=== PATIENT | male | born 1975 | race Caucasian/White ===

== ENCOUNTER → 2017-12-12 | Outpatient (CLI) | payer OTHER ==
[~2017-12-12] MED LIST: ALLEGRA D PO; ALLEGRA-D 121 TABLET PO; ALLEGRA-D 241 TABLET PO; AMITRIPTYLINE H10 MG PO; DULOXETINE HCL30 MG PO; FLEXERIL10 MG PO; FLOMAX0.4 MG PO; FLONASE16 G1 BOTH NARES; MORPHINE SULFAT15 M1 PO; MULTIVITAMIN1 EAC2 PO; NAPROXEN500 MG PO; NASACORT10.8 ML BOTH NARES; OXYCODONE-APAP1 EAC6 PO; PERCOCET 5/31 TABLET PO; PREDNISONE10 M1 PO; Percocet 5/325,Endoc PO; ZANAFLEX4 MG PO
== END | disposition home or self-care (01) ==
LOC: CDC 09:57
DX: Z01.810 Encounter for preprocedural cardiovascular examination (principal); R94.31 Abnormal electrocardiogram [ECG] [EKG]
CPT/HCPCS: 93000